=== PATIENT | female | born 1955 | race Caucasian/White ===

== ENCOUNTER 2016-06-06 10:45 | Day surgery (SDC) | payer OTHER ==
[2016-06-05 11:06] VITALS: BMI 22.0
[~2016-06-06] VITALS: Ht 165.1 cm; Wt 59.1 kg
[2016-06-06] VITALS (10 sets, daily range): BP systolic 103–126; BP diastolic 53–69; PULSE 64–83; RESP 10–19; Ht 165.1 cm; Wt 59.1 kg
[~2016-06-06 10:45] MED LIST: CEFAZOLIN 1 GM INJ ONE
[2016-06-06] MEDS ORDERED: BUPIVACAINE 0.5% (SDV) 30 ML INJ ONE (12:14)
[2016-06-06] MEDS ORDERED: DEXAMETHASONE 4 MG/ML 1 ML INJ ONE (12:14)
[2016-06-06] MEDS ORDERED: POVIDONE IODINE 10% 28.4 GM OINT ONE (12:15)
[2016-06-06] MEDS ORDERED: FENTAnyl 50 MCG/ML VIAL ONE (12:36)
[2016-06-06] MEDS ORDERED: ONDANSETRON 4 MG INJ ONE (12:36)
[2016-06-06] MEDS ORDERED: PROPOFOL 20 ML ONE (12:36)
[2016-06-06] MEDS ORDERED: SUCCINYLCHOLINE CHLORIDE 100 MG/5 ML SYG IV ONE (12:36)
[2016-06-06] MEDS ORDERED: ROCURONIUM 50 MG INJ ONE (12:36)
[2016-06-06] MEDS ORDERED: METOCLOPRAMIDE 10 MG INJ ONE (12:37)
--- NOTE | 2016-06-06 12:56 | HPN ---
Date/Time of Note Date/Time of Note DATE: 06/06/16 TIME: 12:55 Interval H&P Admission Note Pt. seen H&P reviewed: No system changes REAL KIRAN DPM June 06, 2016 12:55
[2016-06-06] MEDS ORDERED: DEXAMETHASONE 4 MG/ML 1 ML INJ INJ ONE (13:00)
[2016-06-06] MEDS ORDERED: BUPIVACAINE 0.5% 30 ML VIAL INJ ONE (13:00)
[2016-06-06] MEDS ORDERED: HYDROmorphONE (0.2 MG/ML) 10ML SYG IV PRN ×3 (13:30)
[2016-06-06] MEDS ORDERED: ONDANSETRON 4 MG INJ IV PRN (13:30)
[2016-06-06] MEDS ORDERED: MEPERIDINE 25 MG INJ IV PRN (13:30)
[2016-06-06] MEDS ORDERED: FENTAnyl 50 MCG/ML VIAL IV PRN ×2 (13:30)
--- NOTE | 2016-06-06 14:32 | PREOPHP ---
DATE OF ADMISSION: 06/06/2016 HISTORY OF PRESENT ILLNESS: The patient is being admitted to the hospital for elective foot surgery , palliative treatment unsuccessful. Patient has been explained surgery complications and alternati ves and elected to have elective foot surgery. The patient has pain on the left bunion. ALLERGIES: PATIENT DENIES ANY TO ANY MEDICINE.. MEDICATIONS: She is taking some medicine for her urination. REVIEW OF SYSTEMS: Negative for heart, lung, liver, kidney, thyroid. Negative for diabetes. SOCIAL HISTORY: Negative for smoking and alcohol. She any other pertinent history on upper extremity physical exam by Dr. Jean. PHYSICAL EXAMINATION: LOWER EXTREMITY: Shows DP and PT equal and regular. NEUROLOGICAL: Negative for pathology. DERMATOLOGICAL: Negative for pathology. MUSCULOSKELETAL: X-ray findings show a hallux abductovalgus, left foot. FINAL DIAGNOSIS: Hallux abductovalgus with bunion deformity, left foot. Dictated By: REAL MARTINEZ/OJ Conf#: [id number] DID#: [id number]
--- NOTE | 2016-06-06 14:41 | OPR ---
DATE OF OPERATION: 06/06/2016 PREOPERATIVE DIAGNOSIS: Hallux abductovalgus with bunion, left foot. POSTOPERATIVE DIAGNOSIS: Hallux abductovalgus with bunion, left foot. PROCEDURE: Osteotomy, bunionectomy with fixation first metatarsal, left foot and application of Epi Fix. SURGEON: Real Givens DPM DESCRIPTION OF PROCEDURE: The patient was brought to the surgical suite, placed in the supine posit ion. The patient was under general anesthesia, had pneumatic cuff at mid thigh, had sterile prep an d drape and findings consistent with the pre and postop diagnosis. The first incision dorsal medial longitudinal incision over the first metatarsophalangeal joint using sharp and blunt dissection. T he incision was carried deep. A longitudinal capsulotomy was made and the head of the first metatar chip was freed of its attachments medially and dorsally. The medial eminence was then resected and t hen a horizontal V centered at the head of the first metatarsal was made with 1 going dorsally and 1 going plantarly, both going proximally [id number]. The capital fragment was then moved la terally, impacted on itself and a K-wire was placed across the osteotomy site and held in place and measured. A 2.5 x 14 mm headless screw by [employer] was then placed over the K-wire and screwed into place. The K-wire was removed. The overhang of the first metatarsal was resected and the area was rasped smooth, the preoperative condition having been relieved. The area then had an EpiFix applica tion 4 x 4. The patient had then the subcutaneous tissue coapted using 3-0 Vicryl and the skin was coapted using 5-0 nylon. The area was injected with 0.5% Marcaine to prolong anesthesia and Decadro n. The area was then dressed using 1/2-inch Steri-Strips, Betadine ointment, 4 x 4s impregnated wit h Betadine solution and Monae with an outer layer of Coban. The patient tolerated surgery well, was returned to recovery room in satisfactory condition. There was minimum blood loss and no complicat ions. Dictated By: REAL MARTINEZ/OJ Conf#: [id number] DID#: [id number]
== END 2016-06-06 15:30 | disposition home or self-care (01) ==
LOC: SDS 10:45
PROVIDERS: ATTEND Podiatrist
DX: M20.12 Hallux valgus (acquired), left foot (principal); M21.612 Bunion of left foot
CPT/HCPCS: 28296; J0330; J0690; J1100; J2405; J2765; J3010